=== PATIENT | male | born 1995 | race Caucasian/White ===

== ENCOUNTER 2022-04-05 13:29 | Emergency (ER) | payer OTHER, SELFPAY ==
[2022-04-05] VITALS (8 sets, daily range): BP systolic 123–146; BP diastolic 56–96; PULSE 56–88; RESP 24; TEMP 37.2; O2SAT 97–100
--- NOTE | 2022-04-05 13:47 | DI.CT.S_ITS ---
PROCEDURE: CT KIDNEY URETER BLADDER (KUB) INDICATIONS: flank pain TECHNIQUE: Axial sections were acquired from the lung bases to the pubic symphysis. Coronal and sagittal reformats were performed. For radiation dose reduction, the following was used: automated exposure control, adjustment of mA and/or kV according to patient size. COMPARISON: None. FINDINGS: Image quality: Excellent. Lung bases: Unremarkable. Heart: No significant findings. URINARY: Right Kidney: Mild hydronephrosis. Additional nonobstructing kidney stones x2 measuring 0.4 cm or less. Right Ureter: Mild hydroureter. Obstructing calculus at the right UVJ passing into the urinary bladder measuring 0.4 cm, (2/77). Left Kidney: No hydronephrosis. At least 2 nonobstructing kidney stones. Largest measuring 0.4 cm. Left Ureter: No hydroureter. Bladder: Normal wall thickness. No stones. ABDOMEN: Liver: Unremarkable. Gallbladder: Unremarkable. No calcified stones. Biliary ducts: Unremarkable. Pancreas: Unremarkable. Spleen: Unremarkable. Adrenal Glands: Unremarkable. Stomach and Bowel: Stomach, small bowel loops, and colon are unremarkable. Normal appendix. Peritoneum: No abnormal intraperitoneal fluid. No free air. Ventral Wall: No hernia. Abdominal Nodes: No enlarged retroperitoneal or mesenteric lymph nodes. Vessels: Aorta and inferior vena cava are normal in size. PELVIS: Pelvic Organs: Unremarkable. Pelvic Nodes: Unremarkable. Miscellaneous: No inguinal hernias are seen. Bones: No suspicious lesion. IMPRESSION: 1. Stone passing through the right UVJ measuring 0.4 cm. Mild right hydroureteronephrosis. 2. Additional small nonobstructing kidney stones bilaterally. Dictated by: Philip Pardo M.D. on 04/05/2022 at 14:26 Approved by: Philip Pardo M.D. on 04/05/2022 at 14:30
[2022-04-05] MEDS: KETOROLAC 30 MG/ML VIAL 15 MG IV (13:55)
[2022-04-05] MEDS: ONDANSETRON 4 MG/2 ML INJ IV (13:55)
[2022-04-05] MEDS: HYDROMORPHONE 0.5 MG INJ IV (13:55)
[2022-04-05 13:56] LABS: Add Manual Diff / Slide Review NO; Basophils Absolute Auto 100 /uL (0-100); Basophils Percent Auto 0.9 % (0-2); Eosinophils Absolute Auto 300 /uL (0-450); Hematocrit 45.1 % (41-53); Hemoglobin 15.9 g/dL (13.5-17.5); Lymphocytes Absolute Auto 3100 /uL (1100-4500); Lymphocytes Percent Auto 34.8 % (25-40); Mean Corpuscular HGB Conc 35.3 % (30-36); Mean Corpuscular Hemoglobin 29.5 PG (26-34); Mean Corpuscular Volume 83.8 fL (80-100); Monocytes Absolute Auto 400 /uL (0-900); Monocytes Percent Auto 4.6 % (3-14); Neutrophils Absolute Auto 5000 /uL (1500-7000); Neutrophils Percent Auto 56.7 % (50-75); Platelet Count 315 X10^3/uL (150-400); Red Blood Cell Count 5.38 X10^6/uL (4.5-5.9); Red Cell Distribution Width 13.2 % (11.6-14.8); White Blood Cell Count 8.8 X10^3/uL (4.5-11.0)
[2022-04-05 14:13] LABS: Alanine Aminotransferase 30 IU/L (<50); Albumin 4.6 g/dL (3.5-5.0); Albumin Globulin Ratio 1.5 (1.0-2.8); Alkaline Phosphatase 77 U/L (38-126); Aspartate Aminotransferase 31 IU/L (17-59); BUN Creatinine Ratio 12.9 (6-22); Bilirubin Total 0.5 mg/dL (0.2-1.3); Blood Urea Nitrogen 13 mg/dL (9-20); C-Reactive Protein Quant < 0.5 mg/dL (<1.0); Calcium 9.4 mg/dL (8.4-10.2); Carbon Dioxide 21 mmol/L (22-32); Chloride 107 mmol/L (98-107); Estimated Glomerular Filt Rate > 60 mL/min (>60); Globulin 3.1 g/dL (1.7-4.1); Glucose 109 mg/dL (70-100); HEMOLYSIS < 15 (0-50); Potassium 3.9 mmol/L (3.4-5.1); Sodium 141 mmol/L (137-145); Total Protein 7.7 g/dL (6.3-8.2)
--- NOTE | 2022-04-05 14:49 | ED_ITS ---
HPI - Abdominal Pain General Chief Complaint: Abdominal Pain Stated Complaint: kidney stone Time Seen by Provider: 04/05/22 13:47 Source: patient Mode of arrival: Ambulatory History of Present Illness HPI narrative: 26-year-old male nonsmoker with history of kidney stones presents with a chief complaint of a relatively sudden onset severe right lower quadrant pain with radiation to his right flank that started a few hours ago. He denies any obvious provocation or palliation and states that the waves of pain seemed to come and go with a might have its own. He is had persistent nausea and vomiting and difficulty producing urine. He denies any fever or chills. He denies runny nose, sore throat or cough Related Data Previous Rx's Medication Instructions Recorded hydrocodone 5 mg-acetaminophen 325 1 tab PO Q4-6H PRN pain #10 tabs 04/05/22 mg tablet ketorolac 10 mg tablet 10 mg PO Q6H PRN pain #14 tabs 04/05/22 ondansetron 4 mg disintegrating 4 mg PO TID-QID PRN nausea and 04/05/22 tablet vomiting #10 tabs tamsulosin 0.4 mg capsule (Flomax) 0.4 mg PO DAILY #30 caps 04/05/22 Allergies Allergy/AdvReac Type Severity Reaction Status Date / Time No Known Drug Allergies Allergy Verified 04/05/22 16:02 Review of Systems Review of Systems Narrative: GENERAL: Denies chills, fatigue, malaise, fever, sweats. HEENT: Denies sinus pain, ear pain, sore throat, difficulty swallowing, dizziness. RESPIRATORY: Denies dyspnea, cough, wheezing, hemoptysis, sputum. CARDIOVASCULAR: Denies chest pain, palpitations, orthopnea, edema, GASTROINTESTINAL: See HPI. : See HPI MUSCULOSKELETAL: denies weakness, joint pain, or bony pain SKIN: Denies rash, skin lesions, or other NEUROLOGIC: Denies weakness, headache, numbness, change in speech, confusion, seizures, incoordination. PSYCHIATRIC: No concerning psychosocial issues. 12 point review of systems is negative except for those stated above Exam Narrative Exam Narrative: GENERAL: [26] year old patient appears stated age. Well-developed patient, in obvious distress, pacing, complaining of pain and rubbing his side, holding an emesis bag HEAD: Atraumatic. Normocephalic. EYES: Pupils equal round and reactive. Extraocular motions intact. No scleral icterus. No injection or drainage. ENT: Nose without bleeding, purulent drainage. Throat without erythema, tonsillar hypertrophy or exudate. Airway patent. NECK: Trachea midline. Non tender CARDIOVASCULAR: Regular rate and rhythm without murmurs, gallops, or rubs. RESPIRATORY: Clear to auscultation. Breath sounds equal bilaterally. No wheezes, rales, or rhonchi. GASTROINTESTINAL: Abdomen soft, non-tender, nondistended. EXTREMITIES: No edema or joint tenderness. BACK: Nontender without deformity or crepitance. No flank tenderness. NEURO: AOx3. SKIN: No rash or erythema of visible areas Initial Vital Signs Initial Vital Signs: Vital Signs Temperature 98.9 F 04/05/22 13:40 Pulse Rate 88 04/05/22 13:40 Respiratory Rate 24 04/05/22 13:40 Blood Pressure 138/77 04/05/22 13:40 Pulse Oximetry 100 04/05/22 13:40 Oxygen Delivery Method 04/05/22 13:40 Course Orders Ordered: Discontinued Medications Hydrocodone Bitart/Acetaminophen (Hydrocodone/Acet 5/325 Prepack) 1 bottle MISC SEEINSTR ONE Stop: 04/05/22 16:48 Last Admin: 04/05/22 17:14 Dose: 1 bottle Documented By: ANABELA Hydromorphone HCl (Hydromorphone 0.5 Mg Inj) 0.5 mg IV NOW ONE Stop: 04/05/22 13:48 Last Admin: 04/05/22 13:55 Dose: 0.5 mg Documented By: MILAGROS Sodium Chloride (Normal Saline 0.9%) 1,000 mls @ 1,000 mls/hr IV BOLUS ONE Stop: 04/05/22 14:55 Last Infusion: 04/05/22 16:00 Dose: 0 mls/hr Documented By: Admin: 04/05/22 14:55 Dose: 1,000 mls/hr Documented By: FRANCESCA Lidocaine HCl 5.1 ml/ Sodium (Chloride) 55.1 mls @ 330.6 mls/hr IV NOW ONE Stop: 04/05/22 15:33 Last Infusion: 04/05/22 17:00 Dose: 0 mls/hr Documented By: FRANCESCA(2) Admin: 04/05/22 16:14 Dose: 330.6 mls/hr Documented By: ANABELA Ketorolac Tromethamine (Ketorolac 30 Mg/Ml Vial) 15 mg IV NOW ONE Stop: 04/05/22 13:50 Last Admin: 04/05/22 13:55 Dose: 15 mg Documented By: MILAGROS Metoclopramide HCl (Metoclopramide 10 Mg/2 Ml Inj) 10 mg IV NOW ONE Stop: 04/05/22 15:33 Last Admin: 04/05/22 15:52 Dose: 10 mg Documented By: FRANCESCA Ondansetron HCl (Ondansetron 4 Mg/2 Ml Inj) 4 mg IV NOW ONE Stop: 04/05/22 13:50 Last Admin: 04/05/22 13:55 Dose: 4 mg Documented By: MILAGROS Ondansetron HCl (Ondansetron 4 Mg Odt Prepack) 1 bottle MISC SEEINSTR ONE Stop: 04/05/22 16:48 Last Admin: 04/05/22 17:14 Dose: 1 bottle Documented By: ANABELA Tamsulosin HCl (Tamsulosin 0.4 Mg Capsule) 0.4 mg PO NOW ONE Stop: 04/05/22 15:33 Last Admin: 04/05/22 16:00 Dose: 0.4 mg Documented By: FRANCESCA(2) Reevaluation(s) Reevaluation #1: Patient having significant improvement in above-stated symptoms Vital Signs Vital signs: Vital Signs - 8 hr 04/05/22 13:40 04/05/22 14:39 04/05/22 14:41 Temperature 98.9 F Pulse Rate 88 68 Respiratory Rate 24 Blood Pressure 138/77 146/96 H Pulse Oximetry 100 97 Oxygen Delivery Method Room Air 04/05/22 14:41 Temperature Pulse Rate 58 L Respiratory Rate Blood Pressure Pulse Oximetry 97 Oxygen Delivery Method MDM - Abdominal Pain Lab Data Result diagrams: 04/05/22 13:46 04/05/22 13:46 Labs: Lab Results 04/05/22 04/05/22 Range/Units 13:46 13:46 WBC 8.8 (4.5-11.0) X10^3/uL RBC 5.38 (4.5-5.9) X10^6/uL Hgb 15.9 (13.5-17.5) g/dL Hct 45.1 (41-53) % MCV 83.8 (80-100) fL MCH 29.5 (26-34) PG MCHC 35.3 (30-36) % RDW 13.2 (11.6-14.8) % Plt Count 315 (150-400) X10^3/uL Neut % (Auto) 56.7 (50-75) % Lymph % (Auto) 34.8 (25-40) % [place] % (Auto) 4.6 (3-14) % Eos % (Auto) 3.0 (2-4) % Baso % (Auto) 0.9 (0-2) % Neut # (Auto) 5000 (1956-4154) /uL Lymph # (Auto) 3100 (6045-3361) /uL [place] # (Auto) 400 (0-900) /uL Eos # (Auto) 300 (0-450) /uL Baso # (Auto) 100 (0-100) /uL Sodium 141 (137-145) mmol/L Potassium 3.9 (3.4-5.1) mmol/L Chloride 107 (98-107) mmol/L Carbon Dioxide 21 L (22-32) mmol/L BUN 13 (9-20) mg/dL Creatinine 1.01 (0.66-1.25) mg/dL Estimated GFR > 60 (>60) mL/min BUN/Creatinine Ratio 12.9 (6-22) Glucose 109 H (70-100) mg/dL Calcium 9.4 (8.4-10.2) mg/dL Total Bilirubin 0.5 (0.2-1.3) mg/dL AST 31 (17-59) IU/L ALT 30 (<50) IU/L Alkaline Phosphatase 77 (38-126) U/L C-Reactive Protein < 0.5 (<1.0) mg/dL Total Protein 7.7 (6.3-8.2) g/dL Albumin 4.6 (3.5-5.0) g/dL Globulin 3.1 (1.7-4.1) g/dL Albumin/Globulin Ratio 1.5 (1.0-2.8) Point of care testing: Urine Dip Bedside Urine Glucose Negative Bedside Urine Bilirubin - Negative Bedside Urine Ketone + 15 Urine Specific [place] 1.020 Bedside Urine Occult Blood +++ Bedside Urine pH 6 Bedside Urine Protein - Negative Bedside Urine Urobilinogen - Negative Bedside Urine Nitrite - Negative Bedside Urine Leukocytes - Negative Esterase Imaging Data CT scan - abdomen/pelvis: Radiologist's Impression: [address] [address] [address] Scan Report Signed Patient: Luke Porter MR#: [id number] : 1995 Acct:[id number] Age/Sex: 26 / M Date of Service: 04/05/22 Loc: ED Accession Number: [id number] ?? Procedure: CT kidney ureter bladder (KUB) Ordering Provider: Ct Bull PROCEDURE:? CT KIDNEY URETER BLADDER (KUB) ? INDICATIONS:? flank pain ? TECHNIQUE:? Axial sections were acquired from the lung bases to the pubic symphysis.? Cor onal and sagittal reformats were performed.? For radiation dose reduction, the following was used: ?automated exposure control, adjustment of mA and/or kV according to patient size.? ? COMPARISON:? None. ? FINDINGS:? Image quality:? Excellent.? ? Lung bases:? Unremarkable.? ? Heart:? No significant findings. ? URINARY: Right Kidney:? Mild hydronephrosis.? Additional nonobstructing kidney stones x2 measuring 0.4 cm or less.? Right Ureter:? Mild hydroureter.? Obstructing calculus at the right UVJ passing into the urinary bladder measuring 0.4 cm, ().? ? Left Kidney: ? No hydronephrosis.? At least 2 nonobstructing kidney stones.? Largest measuring 0.4 cm. Left Ureter:? No hydroureter.? ? Bladder:? Normal wall thickness. No stones. ? ? ? ABDOMEN: Liver:? Unremarkable.? ? Gallbladder:? Unremarkable.? No calcified stones. ? Biliary ducts:? Unremarkable.? ? Pancreas:? Unremarkable.? ? Spleen:? Unremarkable.? ? Adrenal Glands:? Unremarkable.? ? ? Stomach and Bowel:? Stomach, small bowel loops, and colon are unremarkable.? Normal appendix. Peritoneum:? No abnormal intraperitoneal fluid.? No free air.? ? Ventral Wall: ? No hernia.? Abdominal Nodes:? No enlarged retroperitoneal or mesenteric lymph nodes.? Vessels:? Aorta and inferior vena cava are normal in size.? ? PELVIS: Pelvic Organs:? Unremarkable.? ? Pelvic Nodes: Unremarkable. Miscellaneous: No inguinal hernias are seen. ? ? ? Bones:? No suspicious lesion. ? IMPRESSION:? 1. Stone passing through the right UVJ measuring 0.4 cm.? Mild right hydroureteronephrosis.? ? 2. Additional small nonobstructing kidney stones bilaterally. ? ? ? Dictated by: Philip Pardo M.D. on 04/05/2022 at 14:26 ? ? Approved by: Philip Pardo M.D. on 04/05/2022 at 14:30 ? MDM Narrative Medical decision making narrative: Patient with history and physical consistent with kidney stone. Imaging consistent with 4 mm stone at right UVJ. There is no evidence of sepsis, acute kidney injury. Patient pain well controlled, tolerating orals, patient given return precautions and questions answered to his apparent satisfaction Discharge Plan Departure Patient Disposition: Home Clinical Impression: Calculus of kidney Instructions: DI for Kidney Stones Activity Restrictions/Additional Instructions: *You have been diagnosed with [right-sided 4 mm kidney stone *What to do: *Please continue to take your regular medications as directed. [x ] New medication prescriptions sent to your pharmacy: [ DOD] [ ] New medication written as a paper prescription [ ] No new medications given *Please follow up with your primary care provider in 2-3 days, call for an appointment. Let them know you were seen in the Emergency Department and that we ask that you be seen in follow up. We will electronically transmit a record of today's note if your PCP is in our system *If you do not have a primary care provider please contact the [facility] Resource line at [phone]. They will ask some questions about your medical history and help get you set up with a doctor in the community. *Return to Emergency Department if you should have any new, worsening or concerning symptoms, such as [fever greater than 101 F, shaking chills, worsening pain, persistent vomiting or other bothersome symptoms] Prescriptions: New hydrocodone-acetaminophen 5-325 mg tablet 1 tab PO Q4-6H PRN (Reason: pain) Qty: 10 0RF ketorolac 10 mg tablet 10 mg PO Q6H PRN (Reason: pain) Qty: 14 0RF tamsulosin [Flomax] 0.4 mg capsule 0.4 mg PO DAILY Qty: 30 0RF ondansetron 4 mg tablet,disintegrating 4 mg PO TID-QID PRN (Reason: nausea and vomiting) Qty: 10 0RF Referrals: Carmelo Stephenson MD [Physician] - Provider,Linda BARAHONA [Primary Care Provider] - Visit Report Forms: Patient Portal/API
[2022-04-05] MEDS: SODIUM CHLORIDE 0.9% 1,000 ML 1000 ML IV (14:55)
[2022-04-05] MEDS: METOCLOPRAMIDE 10 MG/2 ML INJ IV (15:52)
[2022-04-05] MEDS: TAMSULOSIN 0.4 MG CAPSULE PO (16:00)
[2022-04-05] MEDS: LIDOCAINE 2% 5.1 ML in SODIUM CHLORIDE 0.9% 50 ML 330.6 ML IV (16:14)
[2022-04-05] MEDS: ONDANSETRON 4 MG ODT PREPACK 1 BOTTLE MISC (17:14)
[2022-04-05] MEDS: HYDROCODONE/ACET 5/325 PREPACK 1 BOTTLE MISC (17:14)
== END 2022-04-05 17:30 | disposition home or self-care (01) ==
PROVIDERS: Nurse Practitioner Critical Care Medicine; Emergency Provider Emergency Medicine
DX: N20.0 Calculus of kidney (principal); R11.2 Nausea with vomiting, unspecified; Z87.442 Personal history of urinary calculi
CPT/HCPCS: 36415; 74176; 80053; 81003; 85025; 86140; 96361; 96365; 96375; 99284; J1170; J1885; J2405; J2765

== ENCOUNTER 2022-08-07 10:48 | Emergency (ER) | payer OTHER, SELFPAY ==
[2022-08-07 11:02] VITALS: BP 130/84; PULSE 72; RESP 15; TEMP 36.1; O2SAT 98; BMI 25.8
--- NOTE | 2022-08-07 12:39 | PC.NURSE ---
pt states he thinks he has a sinus infection that is moving into his ear. he tried flonase for his nasal symptoms, and benadryl thinking this might be allergies. the pain has started to move into his ear, he tried flushing his ear and it made it worse. pt has appt on wednesday at [facility] but pain made him come to ER today
--- NOTE | 2022-08-07 13:41 | ED.URI ---
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 Patient denies any trauma to his ear. No history of otitis media or sinusitis. Patient has an appointment with his family doctor next week, but did not think he can wait the weekend due to the pain. Related Data Previous Rx's Medication Instructions Recorded hydrocodone 5 mg-acetaminophen 325 1 tab PO Q4-6H PRN pain #10 tabs 04/05/22 mg tablet ketorolac 10 mg tablet 10 mg PO Q6H PRN pain #14 tabs 04/05/22 ondansetron 4 mg disintegrating 4 mg PO TID-QID PRN nausea and 04/05/22 tablet vomiting #10 tabs tamsulosin 0.4 mg capsule (Flomax) 0.4 mg PO DAILY #30 caps 04/05/22 amoxicillin 875 mg-potassium 1 tab PO BID 10 days #20 tabs 08/07/22 clavulanate 125 mg tablet Allergies Allergy/AdvReac Type Severity Reaction Status Date / Time No Known Drug Allergies Allergy Verified 08/07/22 11:02 Review of Systems <LUKASZ Jensen - Last Filed: 08/07/22 14:12> Review of Systems Narrative: Narrative: See HPI. GENERAL: Denies chills, fatigue, fever, sweats. HEENT: Denies sore throat, difficulty swallowing, dizziness. Endorses sinus pain and left ear pain. RESPIRATORY: Denies dyspnea, cough, wheezing, sputum. CARDIOVASCULAR: Denies chest pain, palpitations, edema. GASTROINTESTINAL: Denies nausea, vomiting, abdominal pain, diarrhea, constipation. : Denies dysuria, frequency, incontinence, hematuria, urinary retention, flank pain. MSK: Denies weakness, joint pain, or bony pain. SKIN: Denies rash, skin lesions, or pruritis. NEUROLOGIC: Denies weakness, dizziness, headache, numbness, confusion. PSYCHIATRIC: No concerning psychosocial issues. Patient History <LUKASZ Jensen - Last Filed: 08/07/22 14:12> Social History Smoking Status: Current every day smoker Smoking Status: Current every day smoker alcohol intake frequency: holidays/special occasions only Substance Use Type: does not use Exam <LUKASZ Jensen - Last Filed: 08/07/22 14:12> Narrative Exam Narrative: Exam Narrative: GENERAL: This is a well-nourished, well-developed patient, in no acute distress. HEAD: Atraumatic. Normocephalic. EYES: Pupils equal round and reactive. Extraocular motions intact. No scleral icterus, injection or drainage. ENT: Nose without bleeding, purulent drainage. Throat with mild erythema, tonsillar hypertrophy or exudate. Uvula midline. Airway patent. Left TM is red and painful, right TMs and canals clear. Maxillary sinus tenderness. NECK: Trachea midline. No JVD or lymphadenopathy. Nontender. CARDIOVASCULAR: Regular rate and rhythm without murmurs, peripheral pulses intact, cap refill <2 sec. RESPIRATORY: Breath sounds equal and clear bilaterally. No wheezes, rales, or rhonchi. No cough. No increased respiratory effort. No accessory muscle use. GASTROINTESTINAL: Abdomen soft, non-tender, nondistended without guarding or rebound. No suprapubic pain. MSK: Moves all extremities. Normal range of motion, no clubbing or edema. Neurovascularly intact. NEURO: A&O x 3. SKIN: Warm, dry, no rashes or lesions noted. Initial Vital Signs Initial Vital Signs: Vital Signs Temperature 97.0 F L 08/07/22 11:02 Pulse Rate 72 08/07/22 11:02 Respiratory Rate 15 08/07/22 11:02 Blood Pressure 130/84 08/07/22 11:02 Pulse Oximetry 98 08/07/22 11:02 Oxygen Delivery Method Room Air 08/07/22 11:02 <Brittanie Braxton DO - Last Filed: 08/08/22 13:14> Initial Vital Signs Initial Vital Signs: Vital Signs Temperature 97.0 F L 08/07/22 11:02 Pulse Rate 72 08/07/22 11:02 Respiratory Rate 15 08/07/22 11:02 Blood Pressure 130/84 08/07/22 11:02 Pulse Oximetry 98 03/03/23 11:02 Oxygen Delivery Method Room Air 08/07/22 11:02 Course <LUKASZ Jensen - Last Filed: 08/07/22 14:12> Vital Signs Vital signs: Vital Signs - 8 hr 08/07/22 11:02 Temperature 97.0 F L Pulse Rate 72 Respiratory Rate 15 Blood Pressure 130/84 Pulse Oximetry 98 Oxygen Delivery Method Room Air <Brittanie Braxton DO - Last Filed: 08/08/22 13:14> Vital Signs Vital signs: Vital Signs - 8 hr 08/07/22 11:02 Temperature 97.0 F L Pulse Rate 72 Respiratory Rate 15 Blood Pressure 130/84 Pulse Oximetry 98 Oxygen Delivery Method Room Air MDM - URI/Sore Throat <LUKASZ Jensen - Last Filed: 08/07/22 14:12> Differential Diagnosis Differential diagnosis: Likely upper respiratory infection, otitis media, sinusitis, viral infection and pharyngitis MDM Narrative Medical decision making narrative: 27-year-old male that presents to the emergency department with sinus and left ear pain x1 week. Assessment was consistent with left otitis media. Will treat with Augmentin. Recommended supportive care that included rest, increased oral hydration, gargling with warm salt water in the morning, daily Claritin or Zyrtec and Flonase nasal spray. Patient verbalized understanding and was agreeable to course of action. Discharge Plan Departure Patient Disposition: Home Clinical Impression: Otitis media Instructions: DI for Sinusitis, DI for Middle Ear Infection-Adult Activity Restrictions/Additional Instructions: *You have been diagnosed with ear infection and possible beginnings of a sinus infection. I will be treating you with Augmentin for 10 days to treat both of these. Please follow-up with your family doctor if symptoms persist or worsen. *What to do: *Please continue to take your regular medications as directed. [x ] New medication prescriptions sent to your pharmacy: [Sahil Rodriguez] [ ] New medication written as a paper prescription [ ] No new medications given *Please follow up with your primary care provider in 2-3 days, call for an appointment. Let them know you were seen in the Emergency Department and that we ask that you be seen in follow up. We will electronically transmit a record of today's note if your PCP is in our system *If you do not have a primary care provider please contact the [facility] Resource line at [phone]. They will ask some questions about your medical history and help get you set up with a doctor in the community. ? Return to ER if you should have any new, worsening or concerning symptoms, such as worsening pain, severe headache, confusion, chest pain, difficulty breathing, fever greater than 101 F, shaking chills, persistent vomiting to the point that you cannot drink fluids, or other new or worsening symptoms. Prescriptions: New amoxicillin-pot clavulanate 875-125 mg tablet 1 tab PO BID 10 Days Qty: 20 0RF No Action hydrocodone-acetaminophen 5-325 mg tablet 1 tab PO Q4-6H PRN (Reason: pain) Qty: 10 0RF ketorolac 10 mg tablet 10 mg PO Q6H PRN (Reason: pain) Qty: 14 0RF tamsulosin [Flomax] 0.4 mg capsule 0.4 mg PO DAILY Qty: 30 0RF ondansetron 4 mg tablet,disintegrating 4 mg PO TID-QID PRN (Reason: nausea and vomiting) Qty: 10 0RF Referrals: Provider,Linda BARAHONA [Primary Care Provider] - Stand Alone Forms: Patient Portal/API <Brittanie Braxton DO - Last Filed: 08/08/22 13:14> Cosign ED Attending Tezature Attestation: I was immediately available in the department for consultation. Documentation has been reviewed.
== END 2022-08-07 14:00 | disposition home or self-care (01) ==
PROVIDERS: Emergency Provider Registered Nurse
DX: H66.92 Otitis media, unspecified, left ear (principal)
CPT/HCPCS: 99281

== ENCOUNTER 2022-08-12 22:28 | Emergency (ER) | payer OTHER, SELFPAY ==
[2022-08-12 22:32] VITALS: BP 144/91; PULSE 94; RESP 18; TEMP 36.7; O2SAT 98; BMI 26.6
--- NOTE | 2022-08-12 23:07 | ED.GENADULT ---
HPI - General Adult General Chief complaint: Urogenital-Male Stated complaint: states kidney stone Time Seen by Provider: 08/12/22 23:06 Source: patient Mode of arrival: Ambulatory Limitations: no limitations History of Present Illness HPI narrative: Patient is a 27-year-old male who is here for evaluation of left-sided flank pain. He states the symptoms started just prior to arrival here in the emergency department. He states that he has had a kidney stone in the past although was in the right side and this feels very similar to that. I can still was back in March. He states that he had an appointment with Urology earlier today to discuss his last kidney stone and he was told that he had and other 1 on the left. It was not hurting at the time of his visit today. He did have Flomax at home and took a dose of this prior to arrival Related Data Previous Rx's Medication Instructions Recorded hydrocodone 5 mg-acetaminophen 325 1 tab PO Q4-6H PRN pain #10 tabs 04/05/22 mg tablet ketorolac 10 mg tablet 10 mg PO Q6H PRN pain #14 tabs 04/05/22 ondansetron 4 mg disintegrating 4 mg PO TID-QID PRN nausea and 04/05/22 tablet vomiting #10 tabs tamsulosin 0.4 mg capsule (Flomax) 0.4 mg PO DAILY #30 caps 04/05/22 amoxicillin 875 mg-potassium 1 tab PO BID 10 days #20 tabs 08/07/22 clavulanate 125 mg tablet hydrocodone 5 mg-acetaminophen 325 1 tab PO Q4-6H PRN pain #14 tabs 08/13/22 mg tablet ondansetron 4 mg disintegrating 4 mg PO Q6H PRN nausea and 08/13/22 tablet vomiting #14 tabs Allergies Allergy/AdvReac Type Severity Reaction Status Date / Time No Known Drug Allergies Allergy Verified 08/07/22 11:02 Review of Systems Constitutional Constitutional: Reports system reviewed and no additional complaints, except as documented Gastrointestinal Gastrointestinal: Reports system reviewed and no additional complaints, except as documented Genitourinary Genitourinary: Reports system reviewed and no additional complaints, except as documented Musculoskeletal Musculoskeletal: Reports system reviewed and no additional complaints, except as documented Hematologic/Lymphatic On Anticoagulants: No Patient History Social History (Reviewed 08/13/22 @ 03:12 by DORYS Pinzon Smoking Status: Current every day smoker Smoking Status: Current every day smoker tobacco type: cigarettes alcohol intake frequency: holidays/special occasions only Substance Use Type: does not use Exam Initial Vital Signs Initial Vital Signs: Vital Signs Temperature 98.1 F 08/12/22 22:32 Pulse Rate 94 H 08/12/22 22:32 Respiratory Rate 18 08/12/22 22:32 Blood Pressure 144/91 H 08/12/22 22:32 Pulse Oximetry 98 08/12/22 22:32 Oxygen Delivery Method Room Air 08/12/22 22:32 HENMT Head: normal to inspection and normocephalic GI Inspection: normal to inspection Palpation: soft and No tender Back/Spine/Pelvis Back: No CVA tenderness Skin General: no rashes or lesions noted Neuro General: patient alert, patient awake and moves all extremities Extrem General: capillary refill normal Course Orders Ordered: ED Orders 08/12/22 22:50 Basic Metabolic Panel Stat 08/13/22 00:17 CT kidney ureter bladder (KUB) Stat Discontinued Medications Hydrocodone Bitart/Acetaminophen (Hydrocodone/Acet 5/325 Prepack) 1 bottle MISC SEEINSTR ONE Stop: 08/13/22 02:03 Hydromorphone HCl (Hydromorphone 1 Mg Inj) 1 mg IV NOW ONE Stop: 08/12/22 23:08 Last Admin: 08/12/22 23:12 Dose: 1 mg Documented By: JULIA Hydromorphone HCl (Hydromorphone 1 Mg Inj) 1 mg IV NOW ONE Stop: 08/13/22 00:18 Last Admin: 08/13/22 00:21 Dose: 1 mg Documented By: VIKY Lidocaine HCl 6 ml/ Sodium (Chloride) 56 mls @ 336 mls/hr IV NOW ONE Stop: 08/12/22 23:38 Last Infusion: 08/13/22 00:03 Dose: 0 mls/hr Documented By: Admin: 08/12/22 23:50 Dose: 336 mls/hr Documented By: VIKY Ketorolac Tromethamine (Ketorolac 30 Mg/Ml Vial) 30 mg IV NOW ONE Stop: 08/12/22 23:22 Last Admin: 08/12/22 23:30 Dose: 30 mg Documented By: JULIA Ondansetron HCl (Ondansetron 4 Mg/2 Ml Inj) 4 mg IV NOW ONE Stop: 08/12/22 23:08 Last Admin: 08/12/22 23:12 Dose: 4 mg Documented By: AMU Ondansetron HCl (Ondansetron 4 Mg Odt Prepack) 1 bottle MISC SEEINSTR ONE Stop: 08/13/22 02:03 Ondansetron HCl (Ondansetron 4 Mg Odt Prepack) 1 bottle MISC SEEINSTR ONE Stop: 08/13/22 02:31 Ondansetron HCl (Ondansetron 4 Mg Odt Prepack) 1 bottle MISC NOW ONE Stop: 08/13/22 02:31 Vital Signs Vital signs: Vital Signs - 8 hr 08/12/22 22:32 Temperature 98.1 F Pulse Rate 94 H Respiratory Rate 18 Blood Pressure 144/91 H Pulse Oximetry 98 Oxygen Delivery Method Room Air Medical Decision Making Medical Records Medical records reviewed: Yes I reviewed the patient's medical records. Lab Data Lab results reviewed: Yes I reviewed the patient's lab results. 08/12/22 22:50 Labs: Lab Results 08/12/22 Range/Units 22:50 Sodium 136 L (137-145) mmol/L Potassium 3.3 L (3.4-5.1) mmol/L Chloride 97 L (98-107) mmol/L Carbon Dioxide 26 (22-32) mmol/L BUN 9 (9-20) mg/dL Creatinine 0.92 (0.66-1.25) mg/dL Estimated GFR > 60 (>60) mL/min BUN/Creatinine Ratio 9.8 (6-22) Glucose 101 H (70-100) mg/dL Calcium 9.5 (8.4-10.2) mg/dL Urine Dip Bedside Urine Bilirubin - Negative Bedside Urine Ketone - Negative Urine Specific [place] 1.010 Bedside Urine Occult Blood - Negative Bedside Urine pH 6 Bedside Urine Protein - Negative Bedside Urine Urobilinogen - Negative Bedside Urine Nitrite - Negative Bedside Urine Leukocytes - Negative Esterase Point of care testing: Urine Dip Bedside Urine Bilirubin - Negative Bedside Urine Ketone - Negative Urine Specific [place] 1.010 Bedside Urine Occult Blood - Negative Bedside Urine pH 6 Bedside Urine Protein - Negative Bedside Urine Urobilinogen - Negative Bedside Urine Nitrite - Negative Bedside Urine Leukocytes - Negative Esterase Imaging Data CT scan - abdomen/pelvis: Radiologist's Impression: PROCEDURE:? CT KIDNEY URETER BLADDER (KUB) ? INDICATIONS:? known L side stone with uncontrolled pain ? TECHNIQUE:? Axial sections were acquired from the lung bases to the pubic symphysis.? Coronal and sagittal reformats were performed.? For radiation dose reduction, the following was used: ?automated exposure control, adjustment of mA and/or kV according to patient size.? ? COMPARISON:? [facility], CT, CT KIDNEY URETER BLADDER (KUB), 04/05/2022, 13:54. ? FINDINGS:? Image quality:? Excellent.? ? Lung bases:? There is minimal atelectasis.? ? Heart:? Heart is normal in size. ? URINARY: Right Kidney and Ureter: ? There are least 3 small nonobstructing right renal stones, with the largest measuring up to 0.3 cm in the inferior pole.? No hydronephrosis.? No hydroureter.? ? Left Kidney and Ureter: ? There is an obstructing stone at the ureteropelvic junction measuring up to 0.5 cm with attenuation values of approximately 500-600 Hounsfield units. ?There is associated mild left hydronephrosis with mild perinephric stranding.? There are 4 small nonobstructing right renal stones also noted with the largest measuring up to 0.2 cm.? The left ureter is nondistended distal to the stone. ? Bladder:? Normal wall thickness. No stones. ? ? ? ABDOMEN: Liver:? Noncontrast evaluation of the liver demonstrates no discrete? mass. Gallbladder:? Within normal limits without calcified gallstones.? ? Biliary ducts:? No biliary ductal dilatation.? ? Pancreas:? Unremarkable.? ? Spleen:? Normal in size.? ? Adrenal Glands:? No adrenal nodules.? ? ? Stomach and Bowel:? Stomach, small bowel loops, and colon are normal in caliber and wall thickness.? The appendix is normal in appearance.? Peritoneum:? No abnormal intraperitoneal fluid.? No free air.? ? Ventral Wall: ? No hernia.? Abdominal Nodes:? No retroperitoneal or mesenteric adenopathy by size criteria.? Vessels:? Aorta and inferior vena cava are normal in size.? ? PELVIS: Pelvic Organs:? Unremarkable.? ? Pelvic Nodes: No enlarged lymph nodes.? Miscellaneous: No inguinal hernias identified. ? ? ? Bones:? Visualized osseous structures demonstrate no suspicious focal lesions. IMPRESSION:? ? 1. Obstructing urinary stone at the left UPJ with mild left hydronephrosis. ? 2. Additional small nonobstructing bilateral renal stones as described.? MDM Narrative Medical decision making narrative: Somewhat difficult to initially control the patient's symptoms however we were able to get the patient relatively asymptomatic. The CT scan was performed because of this difficulty. It does show a left-sided 5 mm proximal stone with hydro. Urinalysis shows no signs of urinary tract infection. Kidney function is unremarkable. No indication for emergent urologic consultation. He has Flomax already and was sent home with medications to try to control his symptoms. He was given specific return precautions. He expressed understanding and agreement. Discharge Plan Departure Patient Disposition: Home Clinical Impression: Renal colic on left side Instructions: DI for Kidney Stones Activity Restrictions/Additional Instructions: I do recommend that you take the medications as directed. I also recommend that in the office is open earlier today that you contact the urologist for a follow-up. Return to the emergency department for uncontrolled pain, uncontrolled vomiting, fevers or any other worsening symptoms. Prescriptions: New hydrocodone-acetaminophen 5-325 mg tablet 1 tab PO Q4-6H PRN (Reason: pain) Qty: 14 0RF ondansetron 4 mg tablet,disintegrating 4 mg PO Q6H PRN (Reason: nausea and vomiting) Qty: 14 0RF No Action hydrocodone-acetaminophen 5-325 mg tablet 1 tab PO Q4-6H PRN (Reason: pain) Qty: 10 0RF ketorolac 10 mg tablet 10 mg PO Q6H PRN (Reason: pain) Qty: 14 0RF tamsulosin [Flomax] 0.4 mg capsule 0.4 mg PO DAILY Qty: 30 0RF ondansetron 4 mg tablet,disintegrating 4 mg PO TID-QID PRN (Reason: nausea and vomiting) Qty: 10 0RF amoxicillin-pot clavulanate 875-125 mg tablet 1 tab PO BID 10 Days Qty: 20 0RF Referrals: ProviderLinda [Primary Care Provider] - Stand Alone Forms: Patient Portal/API
[2022-08-12] MEDS: ONDANSETRON 4 MG/2 ML INJ IV (23:12)
[2022-08-12] MEDS: HYDROMORPHONE 1 MG INJ IV (23:12)
[2022-08-12 23:21] LABS: BUN Creatinine Ratio 9.8 (6-22); Blood Urea Nitrogen 9 mg/dL (9-20); Calcium 9.5 mg/dL (8.4-10.2); Carbon Dioxide 26 mmol/L (22-32); Chloride 97 mmol/L (98-107); Estimated Glomerular Filt Rate > 60 mL/min (>60); Glucose 101 mg/dL (70-100); HEMOLYSIS < 15 (0-50); Potassium 3.3 mmol/L (3.4-5.1); Sodium 136 mmol/L (137-145)
[2022-08-12] MEDS: KETOROLAC 30 MG/ML VIAL IV (23:30)
[2022-08-12] MEDS: LIDOCAINE 2% (PF) 6 ML in SODIUM CHLORIDE 0.9% 50 ML 336 ML IV (23:50)
--- NOTE | 2022-08-13 00:17 | DI.CT.S_ITS ---
PROCEDURE: CT KIDNEY URETER BLADDER (KUB) INDICATIONS: known L side stone with uncontrolled pain TECHNIQUE: Axial sections were acquired from the lung bases to the pubic symphysis. Coronal and sagittal reformats were performed. For radiation dose reduction, the following was used: automated exposure control, adjustment of mA and/or kV according to patient size. COMPARISON: [facility], CT, CT KIDNEY URETER BLADDER (KUB), 04/05/2022, 13:54. FINDINGS: Image quality: Excellent. Lung bases: There is minimal atelectasis. Heart: Heart is normal in size. URINARY: Right Kidney and Ureter: There are least 3 small nonobstructing right renal stones, with the largest measuring up to 0.3 cm in the inferior pole. No hydronephrosis. No hydroureter. Left Kidney and Ureter: There is an obstructing stone at the ureteropelvic junction measuring up to 0.5 cm with attenuation values of approximately 500-600 Hounsfield units. There is associated mild left hydronephrosis with mild perinephric stranding. There are 4 small nonobstructing right renal stones also noted with the largest measuring up to 0.2 cm. The left ureter is nondistended distal to the stone. Bladder: Normal wall thickness. No stones. ABDOMEN: Liver: Noncontrast evaluation of the liver demonstrates no discrete mass. Gallbladder: Within normal limits without calcified gallstones. Biliary ducts: No biliary ductal dilatation. Pancreas: Unremarkable. Spleen: Normal in size. Adrenal Glands: No adrenal nodules. Stomach and Bowel: Stomach, small bowel loops, and colon are normal in caliber and wall thickness. The appendix is normal in appearance. Peritoneum: No abnormal intraperitoneal fluid. No free air. Ventral Wall: No hernia. Abdominal Nodes: No retroperitoneal or mesenteric adenopathy by size criteria. Vessels: Aorta and inferior vena cava are normal in size. PELVIS: Pelvic Organs: Unremarkable. Pelvic Nodes: No enlarged lymph nodes. Miscellaneous: No inguinal hernias identified. Bones: Visualized osseous structures demonstrate no suspicious focal lesions. IMPRESSION: 1. Obstructing urinary stone at the left UPJ with mild left hydronephrosis. 2. Additional small nonobstructing bilateral renal stones as described. Dictated by: Mau Acuña M.D. on 08/13/2022 at 1:41 Approved by: Mau Acuña M.D. on 08/13/2022 at 1:48
[2022-08-13] MEDS: HYDROMORPHONE 1 MG INJ IV (00:21)
--- NOTE | 2022-08-13 01:15 | PC.NURSE ---
hx of kidney stones. First one on the L. Saw his urologist two ago
[2022-08-13] MEDS: HYDROCODONE/ACET 5/325 PREPACK 1 BOTTLE MISC (03:15)
[2022-08-13] MEDS: ONDANSETRON 4 MG ODT PREPACK 1 BOTTLE MISC (03:15)
== END 2022-08-13 03:24 | disposition home or self-care (01) ==
PROVIDERS: Emergency Provider Emergency Medicine
DX: N23 Unspecified renal colic (principal); N20.0 Calculus of kidney; Z87.442 Personal history of urinary calculi
CPT/HCPCS: 36415; 74176; 80048; 81003; 96374; 96375; 96376; 99284; J1170; J1885; J2405

== ENCOUNTER 2022-08-13 22:59 | Emergency (ER) | payer OTHER, SELFPAY ==
[2022-08-13 23:12] VITALS: BP 142/97; PULSE 91; O2SAT 96
[2022-08-13 23:13] VITALS: BP 142/97; PULSE 89; RESP 20; TEMP 37.4; O2SAT 98; BMI 27.4
--- NOTE | 2022-08-13 23:16 | ED_ITS ---
HPI - Male Genitourinary General Chief complaint: Urogenital-Male Stated complaint: kidney pain Time Seen by Provider: 08/13/22 23:16 Source: patient Mode of arrival: Ambulatory History of Present Illness HPI Narrative: 27-year-old male with known left-sided 5 mm kidney stone returns after having been evaluated yesterday. He states his pain is worsening and seems to be more persistent. He is nauseated but denies any vomiting. He is had no fever or chills. He states he is having a hard time urinating today. He denies any chest pain or shortness of breath. He has been taking his medications as directed which include Flomax, hydrocodone. He uses urology at [facility] and has a scheduled appointment for wednesday, but didn't think he could wait. Related Data Previous Rx's Medication Instructions Recorded hydrocodone 5 mg-acetaminophen 325 1 tab PO Q4-6H PRN pain #10 tabs 04/05/22 mg tablet ketorolac 10 mg tablet 10 mg PO Q6H PRN pain #14 tabs 04/05/22 ondansetron 4 mg disintegrating 4 mg PO TID-QID PRN nausea and 04/05/22 tablet vomiting #10 tabs tamsulosin 0.4 mg capsule (Flomax) 0.4 mg PO DAILY #30 caps 04/05/22 amoxicillin 875 mg-potassium 1 tab PO BID 10 days #20 tabs 08/07/22 clavulanate 125 mg tablet hydrocodone 5 mg-acetaminophen 325 1 tab PO Q4-6H PRN pain #14 tabs 08/13/22 mg tablet ondansetron 4 mg disintegrating 4 mg PO Q6H PRN nausea and 08/13/22 tablet vomiting #14 tabs hydrocodone 5 mg-acetaminophen 325 1 tab PO Q4-6H PRN pain #10 tabs 08/14/22 mg tablet Allergies Allergy/AdvReac Type Severity Reaction Status Date / Time No Known Drug Allergies Allergy Verified 08/13/22 23:16 Review of Systems Review of Systems Narrative: GENERAL: Denies chills, fatigue, malaise, fever, sweats. HEENT: Denies sinus pain, ear pain, sore throat, difficulty swallowing, dizziness. RESPIRATORY: Denies dyspnea, cough, wheezing, hemoptysis, sputum. CARDIOVASCULAR: Denies chest pain, palpitations, orthopnea, edema, GASTROINTESTINAL: Denies nausea, vomiting, abdominal pain, diarrhea, c onstipation, melena. : See HPI MUSCULOSKELETAL: denies weakness, joint pain, or bony pain SKIN: Denies rash, skin lesions, or other NEUROLOGIC: Denies weakness, headache, numbness, change in speech, confusion, seizures, incoordination. PSYCHIATRIC: No concerning psychosocial issues. 12 point review of systems is negative except for those stated above Patient History Social History Smoking Status: Current every day smoker Smoking Status: Current every day smoker tobacco type: cigarettes alcohol intake frequency: holidays/special occasions only Substance Use Type: does not use Exam Narrative Exam Narrative: GENERAL: [27] year old patient appears stated age. Well-developed patient, in mild distress. HEAD: Atraumatic. Normocephalic. EYES: Pupils equal round and reactive. Extraocular motions intact. No scleral icterus. No injection or drainage. ENT: Nose without bleeding, purulent drainage. Throat without erythema, tonsillar hypertrophy or exudate. Airway patent. NECK: Trachea midline. Non tender CARDIOVASCULAR: Regular rate and rhythm without murmurs, gallops, or rubs. RESPIRATORY: Clear to auscultation. Breath sounds equal bilaterally. No wheezes, rales, or rhonchi. GASTROINTESTINAL: Abdomen soft, non-tender, nondistended. EXTREMITIES: No edema or joint tenderness. BACK: Left CVA tenderness NEURO: AOx3. SKIN: No rash or erythema of visible areas Initial Vital Signs Initial Vital Signs: Vital Signs Pulse Rate 91 H 08/13/22 23:12 Blood Pressure 142/97 H 08/13/22 23:12 Pulse Oximetry 96 08/13/22 23:12 Course Orders Ordered: ED Orders 08/13/22 23:30 Basic Metabolic Panel Stat Complete Blood Count AUTO DIFF Stat 08/13/22 23:59 US renal complete Stat 08/14/22 00:25 Urine Culture Stat Urine Microscopic Stat 08/14/22 01:47 BMP [Basic Metabolic Panel] Stat Discontinued Medications Hydromorphone HCl (Hydromorphone 0.5 Mg Inj) 0.5 mg IV NOW ONE Stop: 08/14/22 01:18 Last Admin: 08/14/22 01:33 Dose: 0.5 mg Documented By: GC Hydromorphone HCl (Hydromorphone 0.5 Mg Inj) 0.5 mg IV NOW ONE Stop: 08/14/22 02:20 Last Admin: 08/14/22 02:26 Dose: 0.5 mg Documented By: BERHANE Sodium Chloride (Normal Saline 0.9%) 1,000 mls @ 1,000 mls/hr IV BOLUS ONE Stop: 08/14/22 00:16 Last Infusion: 08/14/22 00:54 Dose: 0 mls/hr Documented By: Admin: 08/13/22 23:39 Dose: 1,000 mls/hr Documented By: RB Lidocaine HCl 6 ml/ Sodium (Chloride) 56 mls @ 336 mls/hr IV NOW ONE Stop: 08/13/22 23:18 Last Infusion: 08/14/22 00:03 Dose: 0 mls/hr Documented By: Admin: 08/13/22 23:41 Dose: 336 mls/hr Documented By: RB Ketorolac Tromethamine (Ketorolac 30 Mg/Ml Vial) 15 mg IV NOW ONE Stop: 08/13/22 23:18 Last Admin: 08/13/22 23:42 Dose: 15 mg Documented By: RB Ondansetron HCl (Ondansetron 4 Mg/2 Ml Inj) 4 mg IV NOW ONE Stop: 08/13/22 23:18 Last Admin: 08/13/22 23:41 Dose: 4 mg Documented By: RB Reevaluation(s) Reevaluation #1: Minimal change in symptoms after Toradol and lidocaine drip Reevaluation #2: Patient able to urinate with ease, no change in symptoms, requesting pain medications, Dilaudid ordered Vital Signs Vital signs: Vital Signs - 8 hr 08/13/22 23:13 08/13/22 23:12 08/13/22 23:12 Temperature 99.4 F Pulse Rate 89 91 H Respiratory Rate 20 Blood Pressure 142/97 H 142/97 H Pulse Oximetry 98 96 Oxygen Delivery Method Room Air 08/13/22 23:30 08/13/22 23:30 08/13/22 23:45 Temperature Pulse Rate 77 78 Respiratory Rate Blood Pressure 144/94 H Pulse Oximetry 96 97 Oxygen Delivery Method 08/14/22 00:00 08/14/22 00:00 08/14/22 00:15 Temperature Pulse Rate 78 75 Respiratory Rate Blood Pressure 135/82 Pulse Oximetry 96 95 Oxygen Delivery Method 08/14/22 00:31 08/14/22 00:45 08/14/22 01:00 Temperature Pulse Rate 70 78 71 Respiratory Rate Blood Pressure Pulse Oximetry 97 96 96 Oxygen Delivery Method 08/14/22 01:15 08/14/22 01:30 08/14/22 01:34 Temperature Pulse Rate 75 76 78 Respiratory Rate Blood Pressure Pulse Oximetry 96 96 95 Oxygen Delivery Method 08/14/22 01:34 08/14/22 01:45 08/14/22 02:00 Temperature Pulse Rate 80 Respiratory Rate Blood Pressure 139/84 134/71 Pulse Oximetry 95 Oxygen Delivery Method 08/14/22 02:00 08/14/22 02:16 08/14/22 02:30 Temperature Pulse Rate 68 67 85 Respiratory Rate Blood Pressure Pulse Oximetry 93 97 95 Oxygen Delivery Method 08/14/22 02:31 08/14/22 02:31 Temperature Pulse Rate 83 Respiratory Rate Blood Pressure 158/89 H Pulse Oximetry 94 Oxygen Delivery Method MDM - Male Genitourinary Lab Data 08/13/22 23:30 08/14/22 01:47 Labs: Lab Results 08/13/22 08/13/22 08/14/22 Range/Units 23:30 23:30 00:25 WBC 12.2 H (4.5-11.0) X10^3/uL RBC 5.08 (4.5-5.9) X10^6/uL Hgb 14.7 (13.5-17.5) g/dL Hct 43.7 (41-53) % MCV 86.0 (80-100) fL MCH 28.9 (26-34) PG MCHC 33.7 (30-36) % RDW 13.0 (11.6-14.8) % Plt Count 202 (150-400) X10^3/uL Neut % (Auto) 82.7 H (50-75) % Lymph % (Auto) 9.6 L (25-40) % [place] % (Auto) 6.0 (3-14) % Eos % (Auto) 1.5 L (2-4) % Baso % (Auto) 0.2 (0-2) % Neut # (Auto) 76586 H (6779-0446) /uL Lymph # (Auto) 1200 (0677-8423) /uL [place] # (Auto) 700 (0-900) /uL Eos # (Auto) 200 (0-450) /uL Baso # (Auto) 0 (0-100) /uL Sodium 135 L (137-145) mmol/L Potassium 4.1 (3.4-5.1) mmol/L Chloride 101 (98-107) mmol/L Carbon Dioxide 26 (22-32) mmol/L BUN 19 (9-20) mg/dL Creatinine 1.62 H (0.66-1.25) mg/dL Estimated GFR 60 (>60) mL/min BUN/Creatinine Ratio 11.7 (6-22) Glucose 101 H (70-100) mg/dL Calcium 8.9 (8.4-10.2) mg/dL Urine RBC 1-5/hpf (0-5/HPF) Urine WBC 0-1/hpf (0-5/HPF) Urine Bacteria None seen (None) Micro UA Comment * 08/14/22 Range/Units 01:47 WBC (4.5-11.0) X10^3/uL RBC (4.5-5.9) X10^6/uL Hgb (13.5-17.5) g/dL Hct (41-53) % MCV (80-100) fL MCH (26-34) PG MCHC (30-36) % RDW (11.6-14.8) % Plt Count (150-400) X10^3/uL Neut % (Auto) (50-75) % Lymph % (Auto) (25-40) % [place] % (Auto) (3-14) % Eos % (Auto) (2-4) % Baso % (Auto) (0-2) % Neut # (Auto) (2010-2484) /uL Lymph # (Auto) (3300-9628) /uL [place] # (Auto) (0-900) /uL Eos # (Auto) (0-450) /uL Baso # (Auto) (0-100) /uL Sodium 137 (137-145) mmol/L Potassium 4.2 (3.4-5.1) mmol/L Chloride 105 (98-107) mmol/L Carbon Dioxide 27 (22-32) mmol/L BUN 16 (9-20) mg/dL Creatinine 1.33 H (0.66-1.25) mg/dL Estimated GFR > 60 (>60) mL/min BUN/Creatinine Ratio 12.0 (6-22) Glucose 94 (70-100) mg/dL Calcium 8.1 L (8.4-10.2) mg/dL Urine RBC (0-5/HPF) Urine WBC (0-5/HPF) Urine Bacteria (None) Micro UA Comment Urine Dip Bedside Urine Glucose Negative Bedside Urine Bilirubin - Negative Bedside Urine Ketone +/- 5 Urine Specific [place] 1.015 Bedside Urine Occult Blood ++ Bedside Urine pH 6.0 Bedside Urine Protein - Negative Bedside Urine Urobilinogen - Negative Bedside Urine Nitrite - Negative Bedside Urine Leukocytes - Negative Esterase Imaging Data Renal US: Radiologist's Impression: [address] [address] Ultrasound Report Signed Patient: Luke Porter MR#: [id number] : 1995 Acct:[id number] Age/Sex: 27 / M Date of Service: 08/13/22 Loc: ED Accession Number: [id number] ?? Procedure: US renal complete Ordering Provider: Alvaro Cobb D.O. PROCEDURE:? US RENAL COMPLETE ? INDICATIONS:? LEFT FLANK PAIN; ELEVATED CREATININE ? TECHNIQUE:? Real-time scanning was performed of the kidneys and bladder, with image docum entation.? ? COMPARISON:? [facility], CT, CT KIDNEY URETER BLADDER (KUB), 08/13/2022, 0:34. ? FINDINGS:? ? Kidneys:? Right kidney measures 12.0 cm long; left kidney measures 11.8 cm long.? Right renal cortical thickness is 1.8 cm; left renal cortical thickness is 1.6 cm.? Renal cortical echotexture is normal.? There is mild left hydronephrosis redemonstrated as seen on CT.? No discrete left renal stone visualized sonographically.? A 0.4 cm nonobstructing stone is demonstrated within the inferior pole of the right kidney. ? Bladder:? Pre-void bladder volume is 211 mL.? Post-void residual is 0 mL.? Pre- void images demonstrate no intraluminal masses or stones.? On pre-void images, the right ureteral jet is noted with color Doppler interrogation.? (Of note, ureteral jets may not be detectable in up to 25% of cases due to insufficient differences in specific gravity between ureteral and bladder urine).? ? Miscellaneous:? No free pelvic fluid.? ? IMPRESSION:? ? 1. Persistent mild left hydronephrosis as seen on the recent CT.? ? 2. Small nonobstructing stone within the right kidney. ? 3. Punctate left renal stones seen on CT not visualized sonographically.? ? Dictated by: Mau Acuña M.D. on 08/14/2022 at 1:11 ? ? Approved by: Mau Acuña M.D. on 08/14/2022 at 1:14 ? MDM Narrative Medical decision making narrative: CC: 27-year-old male with severe, worsening left flank pain Complicating co-morbidities: Known 5 mm stone Data collected from: Patient Medical records reviewed: Prior notes reviewed in our EMR Differential considered, but not limited to: Obstructive uropathy, pyelonephritis versus other Exam documented above, pertinent findings include: Left flank pain, clearly uncomfortable Lab Test results independently reviewed as above. Pertinent findings: Slight leukocytosis with relative left shift, creatinine has bumped from 0.92 to 1.65 Imaging studies independently reviewed: Renal ultrasound demonstrates continued obstructive uropathy Consultations: Treatments: Saline, Toradol, lidocaine drip, Dilaudid Re-evaluations: Improves symptoms, tolerating orals Discussion: Patient with 5 mm stone presents with pain. There is no fever or chills, urine shows no sign of infection. Renal ultrasound demonstrates ongoing hydronephrosis but no other significant findings. Patient given saline and other above-stated therapies with improves symptoms, ability to tolerate orals, improvement of creatinine to 1.3. Patient appropriate for discharge, encouraged to follow closely with his Urology team Disposition: see below, along with detailed discharge instructions that have been reviewed with patient as well as indications for ED re-evaluation and additional outpatient follow up Discharge Plan Departure Patient Disposition: Home Clinical Impression: Renal colic on left side, Kidney calculi Instructions: DI for Kidney Stones Activity Restrictions/Additional Instructions: *You have been diagnosed with [left-sided kidney stone] *What to do: *Please continue to take your regular medications as directed. [ x] New medication prescriptions sent to your pharmacy: [ [facility]] [ ] New medication written as a paper prescription [ ] No new medications given *Please follow up with your urologist on Wednesday as planned. *If you do not have a primary care provider please contact the [facility] Resource line at [phone]. They will ask some questions about your medical history and help get you set up with a doctor in the community. *Return to Emergency Department if you should have any new, worsening or concerning symptoms, such as [fever greater than 101 F, shaking chills, worsening pain, persistent vomiting or other bothersome symptoms] Prescriptions: New hydrocodone-acetaminophen 5-325 mg tablet 1 tab PO Q4-6H PRN (Reason: pain) Qty: 10 0RF No Action hydrocodone-acetaminophen 5-325 mg tablet 1 tab PO Q4-6H PRN (Reason: pain) Qty: 10 0RF ketorolac 10 mg tablet 10 mg PO Q6H PRN (Reason: pain) Qty: 14 0RF tamsulosin [Flomax] 0.4 mg capsule 0.4 mg PO DAILY Qty: 30 0RF ondansetron 4 mg tablet,disintegrating 4 mg PO TID-QID PRN (Reason: nausea and vomiting) Qty: 10 0RF amoxicillin-pot clavulanate 875-125 mg tablet 1 tab PO BID 10 Days Qty: 20 0RF hydrocodone-acetaminophen 5-325 mg tablet 1 tab PO Q4-6H PRN (Reason: pain) Qty: 14 0RF ondansetron 4 mg tablet,disintegrating 4 mg PO Q6H PRN (Reason: nausea and vomiting) Qty: 14 0RF Referrals: ProviderLinda [Primary Care Provider] - Stand Alone Forms: Patient Portal/API
--- NOTE | 2022-08-13 23:21 | PC.NURSE ---
Patient was here yesterday and had a 5mm left sided kidney stone.
[2022-08-13 23:30] VITALS: BP 144/94; PULSE 77; O2SAT 96
[2022-08-13] MEDS: SODIUM CHLORIDE 0.9% 1,000 ML 1000 ML IV (23:39)
[2022-08-13] MEDS: ONDANSETRON 4 MG/2 ML INJ IV (23:41)
[2022-08-13] MEDS: LIDOCAINE 2% (PF) 6 ML in SODIUM CHLORIDE 0.9% 50 ML 336 ML IV (23:41)
[2022-08-13 23:42] LABS: Add Manual Diff / Slide Review NO; Basophils Absolute Auto 0 /uL (0-100); Basophils Percent Auto 0.2 % (0-2); Eosinophils Absolute Auto 200 /uL (0-450); Eosinophils Percent Auto 1.5 % (2-4); Hematocrit 43.7 % (41-53); Hemoglobin 14.7 g/dL (13.5-17.5); Lymphocytes Absolute Auto 1200 /uL (1100-4500); Lymphocytes Percent Auto 9.6 % (25-40); Mean Corpuscular HGB Conc 33.7 % (30-36); Mean Corpuscular Hemoglobin 28.9 PG (26-34); Monocytes Absolute Auto 700 /uL (0-900); Neutrophils Absolute Auto 10100 /uL (1500-7000); Neutrophils Percent Auto 82.7 % (50-75); Platelet Count 202 X10^3/uL (150-400); Red Blood Cell Count 5.08 X10^6/uL (4.5-5.9); White Blood Cell Count 12.2 X10^3/uL (4.5-11.0)
[2022-08-13] MEDS: KETOROLAC 30 MG/ML VIAL 15 MG IV (23:42)
[2022-08-13 23:45] VITALS: PULSE 78; O2SAT 97
[2022-08-13 23:51] LABS: BUN Creatinine Ratio 11.7 (6-22); Blood Urea Nitrogen 19 mg/dL (9-20); Calcium 8.9 mg/dL (8.4-10.2); Carbon Dioxide 26 mmol/L (22-32); Chloride 101 mmol/L (98-107); Estimated Glomerular Filt Rate 60 mL/min (>60); Glucose 101 mg/dL (70-100); HEMOLYSIS < 15 (0-50); Potassium 4.1 mmol/L (3.4-5.1); Sodium 135 mmol/L (137-145)
--- NOTE | 2022-08-13 23:59 | DI.US.S_ITS ---
PROCEDURE: US RENAL COMPLETE INDICATIONS: LEFT FLANK PAIN; ELEVATED CREATININE TECHNIQUE: Real-time scanning was performed of the kidneys and bladder, with image documentation. COMPARISON: [facility], CT, CT KIDNEY URETER BLADDER (KUB), 08/13/2022, 0:34. FINDINGS: Kidneys: Right kidney measures 12.0 cm long; left kidney measures 11.8 cm long. Right renal cortical thickness is 1.8 cm; left renal cortical thickness is 1.6 cm. Renal cortical echotexture is normal. There is mild left hydronephrosis redemonstrated as seen on CT. No discrete left renal stone visualized sonographically. A 0.4 cm nonobstructing stone is demonstrated within the inferior pole of the right kidney. Bladder: Pre-void bladder volume is 211 mL. Post-void residual is 0 mL. Pre-void images demonstrate no intraluminal masses or stones. On pre-void images, the right ureteral jet is noted with color Doppler interrogation. (Of note, ureteral jets may not be detectable in up to 25% of cases due to insufficient differences in specific gravity between ureteral and bladder urine). Miscellaneous: No free pelvic fluid. IMPRESSION: 1. Persistent mild left hydronephrosis as seen on the recent CT. 2. Small nonobstructing stone within the right kidney. 3. Punctate left renal stones seen on CT not visualized sonographically. Dictated by: Mau Acuña M.D. on 08/14/2022 at 1:11 Approved by: Mau Acuña M.D. on 08/14/2022 at 1:14
[2022-08-14] VITALS (13 sets, daily range): BP systolic 134–158; BP diastolic 71–89; PULSE 67–85; O2SAT 93–97
[2022-08-14 01:16] LABS: Bacteria Urine None Seen; RBC Urine 1-5/HPF (0-5/HPF); WBC Urine 0-1/HPF (0-5/HPF)
[2022-08-14] MEDS: HYDROMORPHONE 0.5 MG INJ IV ×2 (01:33→02:26)
[2022-08-14 02:05] LABS: Blood Urea Nitrogen 16 mg/dL (9-20); Calcium 8.1 mg/dL (8.4-10.2); Carbon Dioxide 27 mmol/L (22-32); Chloride 105 mmol/L (98-107); Estimated Glomerular Filt Rate > 60 mL/min (>60); Glucose 94 mg/dL (70-100); HEMOLYSIS < 15 (0-50); Potassium 4.2 mmol/L (3.4-5.1); Sodium 137 mmol/L (137-145)
== END 2022-08-14 02:39 | disposition home or self-care (01) ==
PROVIDERS: Emergency Provider Emergency Medicine
DX: N20.0 Calculus of kidney (principal); N23 Unspecified renal colic
CPT/HCPCS: 36415; 76770; 80048; 81003; 81015; 85025; 87086; 96365; 96375; 96376; 99284; J1170; J1885; J2405

== ENCOUNTER 2022-09-19 18:20 | Emergency (ER) | payer OTHER, SELFPAY ==
[2022-09-19 18:26] VITALS: BP 135/88; PULSE 75; RESP 20; TEMP 36.1; O2SAT 97; BMI 27.4
--- NOTE | 2022-09-19 18:30 | ED_ITS ---
HPI - SOB/Dyspnea General Chief Complaint: Upper Respiratory Symptoms Stated Complaint: bad cough SOB ongoing x14, tingling in fing. Time Seen by Provider: 09/19/22 18:25 Source: patient, RN notes reviewed and old records reviewed Mode of arrival: Ambulatory Limitations: no limitations History of Present Illness HPI Narrative: This is a 27-year-old male with history of kidney stones who presents with 2 weeks of nonproductive cough. Patient states he is had fevers intermittently and most recently. He states a little bit of chest discomfort. Sometimes short of breath when he talks a lot. Patient states no dizziness or passing out. He states pain is when he coughs describes it as substernal. Does not radiate. He has used nebulizers in the past but not regularly he states no known asthma history. Patient states he has not had any productive sputum. He is had a dry cough. He states that he is had nasal congestion. No ear pain. No sore throat. No nausea, no vomiting. He has coughed hard enough to make himself throw up once or twice. He denies any diarrhea, constipation, no urinary symptoms. No swelling in his extremities. He states no daily medications. Denies any prior surgeries. No known drug allergies. He smokes 3-4 cigarettes daily, denies alcohol, denies illicit. Related Data Previous Rx's Medication Instructions Recorded hydrocodone 5 mg-acetaminophen 325 1 tab PO Q4-6H PRN pain #10 tabs 04/05/22 mg tablet ketorolac 10 mg tablet 10 mg PO Q6H PRN pain #14 tabs 04/05/22 ondansetron 4 mg disintegrating 4 mg PO TID-QID PRN nausea and 04/05/22 tablet vomiting #10 tabs tamsulosin 0.4 mg capsule (Flomax) 0.4 mg PO DAILY #30 caps 04/05/22 hydrocodone 5 mg-acetaminophen 325 1 tab PO Q4-6H PRN pain #14 tabs 08/13/22 mg tablet ondansetron 4 mg disintegrating 4 mg PO Q6H PRN nausea and 08/13/22 tablet vomiting #14 tabs hydrocodone 5 mg-acetaminophen 325 1 tab PO Q4-6H PRN pain #10 tabs 08/14/22 mg tablet prednisone 10 mg tablets in a dose See Rx Instructions PO .COMPLEX 09/19/22 pack #15 ea Allergies Allergy/AdvReac Type Severity Reaction Status Date / Time No Known Drug Allergies Allergy Verified 08/13/22 23:16 Review of Systems Review of Systems ROS Unobtainable: All systems reviewed & are unremarkable except as noted in HPI and below Patient History Social History Smoking Status: Current every day smoker Smoking Status: Current every day smoker tobacco type: cigarettes alcohol intake frequency: holidays/special occasions only Substance Use Type: does not use Exam Narrative Exam Narrative: GEN: well nourished, well appearing male, alert and oriented x 3, patient appears to be in mild distress. HEENT: Atraumatic, pupils are equal round reactive to light, extraocular movements are intact, nares show mild clear rhinorrhea, TMs are clear with no fluid, there is no conjunctival pallor. Throat is clear without any exudates, erythema, tonsillar enlargement or uvular deviation HEART: Regular rate and rhythm without murmur, clicks, rubs. pulses are equal in upper and lower extremities, no swelling bilateral lower extremities. LUNGS:Lungs clear to auscultation, no wheezes, rales, crackles, chest moves symmetrically, no tachypnea or accessory muscle use. Patient has dry cough intermittently. ABD:bowel sounds normal, soft, non-tender, no guarding, rebound, rigidity, no masses noted, no hepatosplenomegaly :No CVA tenderness MSCL: Non-tender, no muscle atrophy, muscles strength 5/5 upper and lower extr emities, full range of motion, normal gait NEURO:CN 2-12 intact, sensation normal SKIN: No rash, erythema or other skin changes. Initial Vital Signs Initial Vital Signs: Vital Signs Temperature 97 F L 09/19/22 18:26 Pulse Rate 75 09/19/22 18:26 Respiratory Rate 20 09/19/22 18:26 Blood Pressure 135/88 09/19/22 18:26 Pulse Oximetry 97 09/19/22 18:26 Oxygen Delivery Method Room Air 09/19/22 18:26 Course Orders Ordered: ED Orders 09/19/22 18:30 Chest [XR chest 2V] Stat Discontinued Medications Albuterol (Albuterol Hfa Prepack) 1 box [facility] ONE Stop: 09/19/22 19:16 Last Admin: 09/19/22 19:20 Dose: 1 box Documented By: Ibuprofen (Ibuprofen 400 Mg Tablet) 800 mg PO NOW ONE Stop: 09/19/22 18:32 Last Admin: 09/19/22 18:44 Dose: 800 mg Documented By: JALIL Vital Signs Vital signs: Vital Signs - 8 hr 09/19/22 18:26 09/19/22 19:06 09/19/22 19:16 Temperature 97 F L Pulse Rate 75 69 68 Respiratory Rate 20 20 Blood Pressure 135/88 Pulse Oximetry 97 96 97 Oxygen Delivery Method Room Air 09/19/22 19:17 Temperature Pulse Rate Respiratory Rate Blood Pressure 120/65 Pulse Oximetry Oxygen Delivery Method MDM - SOB/Dyspnea Imaging Data Chest x-ray: Radiologist's Impression: [address] [address] XRay Report Signed Patient: Luke Porter MR#: [id number] : 1995 Acct:[id number] Age/Sex: 27 / M Date of Service: 09/19/22 Loc: ED Accession Number: [id number] ?? Procedure: XR chest 2V Ordering Provider: Rubi Espitia D.O. PROCEDURE:? XR CHEST 2V ? INDICATIONS:? cough x 2 weeks, fever ? TECHNIQUE:? 2 views of the chest were acquired.? ? COMPARISON:? None. ? FINDINGS:? ? Surgical changes and devices:? None.? ? Lungs and pleura:? An incomplete inspiratory result is noted, causing a crowded appearance to the lung markings.? No focal infiltrates are seen.? No pneumothorax or significant pleural effusions are seen. ? ? Mediastinum:? Mediastinal contours are normal.? Heart size is normal.? ? Bones and chest wall:? No suspicious bony abnormalities.? Soft tissues appear unremarkable.? IMPRESSION:? Low lung volumes, without focal infiltrates. ? ? Dictated by: True Morris M.D. on 09/19/2022 at 17:42 ? ? Approved by: True Morris M.D. on 09/19/2022 at 17:42? MDM Narrative Medical decision making narrative: This is a 27-year-old male who presents with persistent upper respiratory symptoms that have seemed to moved into his chest. He is, vital signs are appropriate he is not hypoxic, no tachycardia, no hypotension or tachypnea. Patient's lungs are clear on examination he is had 2 weeks of symptoms with some chest cough but has continued to have some fevers. Chest x-ray was obtained and is negative with no exam findings consistent with pneumonia. My suspicion for cardiac or other causes is much lower. Patient has required nebulizers when he was younger. He is not particularly wheeze at white now but my experience has been some individuals do respond with a cough so albuterol with spacer was given here and prescription for short course of prednisone with follow-up precautions. Discharge Plan Departure Patient Disposition: Home Clinical Impression: Bronchitis Instructions: DI for Acute Bronchitis Activity Restrictions/Additional Instructions: Please follow-up for recheck if your symptoms are not improving over the next week. Your chest x-ray does not show any signs of pneumonia. Some individuals benefit from a short course of steroids. You can try albuterol 1-2 puffs every 6 hours (use with spacer) Prescription sent to [facility] in [place]. Please return for worsening chest pain, shortness of breath, lightheadedness or passing out, coughing up blood, new swelling in her extremities or other new or concerning changes. Prescriptions: New prednisone 10 mg tablets,dose pack See Rx Instructions .ROUTE .COMPLEX Qty: 15 0RF Rx Instructions: Take 5 tablets p.o. x1 day, then 4 tablets p.o. x1 day, then 3 tablets p.o. x1 day, then 2 tablets p.o. x1 day, then 1 tablet p.o. x1 day No Action hydrocodone-acetaminophen 5-325 mg tablet 1 tab PO Q4-6H PRN (Reason: pain) Qty: 10 0RF ketorolac 10 mg tablet 10 mg PO Q6H PRN (Reason: pain) Qty: 14 0RF tamsulosin [Flomax] 0.4 mg capsule 0.4 mg PO DAILY Qty: 30 0RF ondansetron 4 mg tablet,disintegrating 4 mg PO TID-QID PRN (Reason: nausea and vomiting) Qty: 10 0RF hydrocodone-acetaminophen 5-325 mg tablet 1 tab PO Q4-6H PRN (Reason: pain) Qty: 14 0RF ondansetron 4 mg tablet,disintegrating 4 mg PO Q6H PRN (Reason: nausea and vomiting) Qty: 14 0RF hydrocodone-acetaminophen 5-325 mg tablet 1 tab PO Q4-6H PRN (Reason: pain) Qty: 10 0RF Referrals: ProviderLinda [Primary Care Provider] - Stand Alone Forms: Patient Portal/API
--- NOTE | 2022-09-19 18:30 | DI.RAD.S_ITS ---
PROCEDURE: XR CHEST 2V INDICATIONS: cough x 2 weeks, fever TECHNIQUE: 2 views of the chest were acquired. COMPARISON: None. FINDINGS: Surgical changes and devices: None. Lungs and pleura: An incomplete inspiratory result is noted, causing a crowded appearance to the lung markings. No focal infiltrates are seen. No pneumothorax or significant pleural effusions are seen. Mediastinum: Mediastinal contours are normal. Heart size is normal. Bones and chest wall: No suspicious bony abnormalities. Soft tissues appear unremarkable. IMPRESSION: Low lung volumes, without focal infiltrates. Dictated by: True Morris M.D. on 09/19/2022 at 17:42 Approved by: True Morris M.D. on 09/19/2022 at 17:42
[2022-09-19] MEDS: IBUPROFEN 400 MG TABLET 800 MG PO (18:44)
[2022-09-19 19:06] VITALS: PULSE 69; O2SAT 96
[2022-09-19 19:16] VITALS: PULSE 68; RESP 20; O2SAT 97
[2022-09-19 19:17] VITALS: BP 120/65
[2022-09-19] MEDS: ALBUTEROL HFA PREPACK 1 BOX MISC (19:20)
== END 2022-09-19 19:24 | disposition home or self-care (01) ==
PROVIDERS: Emergency Provider Emergency Medicine
DX: J40 Bronchitis, not specified as acute or chronic (principal); F17.200 Nicotine dependence, unspecified, uncomplicated
CPT/HCPCS: 71046; 99283

== ENCOUNTER 2022-09-24 06:58 | Emergency (ER) | payer OTHER, SELFPAY ==
[2022-09-24 07:08] VITALS: BP 112/73; PULSE 93; RESP 19; TEMP 36.3; O2SAT 96; BMI 27.4
--- NOTE | 2022-09-24 07:53 | ED.SOB ---
HPI - SOB/Dyspnea General Chief Complaint: Shortness of Breath/Dyspnea Stated Complaint: deep cough nola isn't helping Time Seen by Provider: 09/24/22 07:25 Source: patient Mode of arrival: Ambulatory Limitations: no limitations History of Present Illness HPI Narrative: This is a 27-year-old male with history kidney stones who presents for a 2nd time with persistent cough for almost 3 weeks. Patient states he is had subjective fevers intermittently where he feels warm. He states he does not feel short of breath but he is had a very persistent cough that is gotten worse since he was seen 5 days ago. He states it is nonproductive. He denies any lightheadedness or passing out. He states it feels uncomfortable in his chest when he coughs. He denies any hemoptysis. He has used nebulizers in the past when he was younger, he was given steroids and albuterol 5 days ago he states the 1st day seemed better and then returned. Patient states the albuterol does not seem to make any change in his cough. He states he developed a little bit of diarrhea after the steroids. No constipation. No urinary symptoms. No swelling in his extremities. No rash or skin changes. Does not take any daily medications. He denies any prior surgeries. No known drug allergies. He smokes 3-4 cigarettes daily, no alcohol or illicit. Patient does note he tried some [id number] Aleve p.m. but has not tried other antitussive medication. Related Data Previous Rx's Medication Instructions Recorded hydrocodone 5 mg-acetaminophen 325 1 tab PO Q4-6H PRN pain #10 tabs 04/05/22 mg tablet ketorolac 10 mg tablet 10 mg PO Q6H PRN pain #14 tabs 04/05/22 ondansetron 4 mg disintegrating 4 mg PO TID-QID PRN nausea and 04/05/22 tablet vomiting #10 tabs tamsulosin 0.4 mg capsule (Flomax) 0.4 mg PO DAILY #30 caps 04/05/22 hydrocodone 5 mg-acetaminophen 325 1 tab PO Q4-6H PRN pain #14 tabs 08/13/22 mg tablet ondansetron 4 mg disintegrating 4 mg PO Q6H PRN nausea and 08/13/22 tablet vomiting #14 tabs hydrocodone 5 mg-acetaminophen 325 1 tab PO Q4-6H PRN pain #10 tabs 08/14/22 mg tablet prednisone 10 mg tablets in a dose See Rx Instructions PO .COMPLEX 09/19/22 pack #15 ea azithromycin 250 mg tablet See Rx Instructions PO .COMPLEX #6 09/24/22 tabs codeine 10 mg-guaifenesin 100 mg/5 5 ml PO Q4-6H PRN cough #118 mL 09/24/22 mL oral liquid Allergies Allergy/AdvReac Type Severity Reaction Status Date / Time No Known Drug Allergies Allergy Verified 08/13/22 23:16 Review of Systems Review of Systems ROS Unobtainable: All systems reviewed & are unremarkable except as noted in HPI and below Patient History Social History Smoking Status: Current every day smoker Smoking Status: Current every day smoker tobacco type: cigarettes alcohol intake frequency: holidays/special occasions only Substance Use Type: does not use Exam Narrative Exam Narrative: GEN: well nourished, well appearing male, alert and oriented x 3, patient appears to be in mild distress. HEENT: Atraumatic, pupils are equal round reactive to light, extraocular movements are intact, nares are clear, there is no conjunctival pallor. Throat is clear without any exudates, erythema, tonsillar enlargement or uvular deviation HEART: Regular rate and rhythm without murmur, clicks, rubs. LUNGS:Lungs have breath sounds bilaterally, course at bases bilateral, no wheezes, rales, crackles, chest moves symmetrically, no tachypnea, no accessory muscle use. Patient has a dry persistent cough ABD:bowel sounds normal, soft, non-tender, no guarding, rebound, rigidity, no masses noted, no hepatosplenomegaly :No CVA tenderness MSCL: Non-tender, no muscle atrophy, muscles strength 5/5 upper and lower extremities, full range of motion, normal gait NEURO:CN 2-12 intact, sensation normal SKIN: No rash, erythema or other skin changes Initial Vital Signs Initial Vital Signs: Vital Signs Temperature 97.4 F L 09/24/22 07:08 Pulse Rate 93 H 09/24/22 07:08 Respiratory Rate 19 09/24/22 07:08 Blood Pressure 112/73 09/24/22 07:08 Pulse Oximetry 96 09/24/22 07:08 Oxygen Delivery Method Room Air 09/24/22 07:08 Course Orders Ordered: ED Orders 09/24/22 07:55 Respiratory Panel (Film Array) Stat 09/24/22 08:13 Chest [XR chest 2V] Stat Vital Signs Vital signs: Vital Signs - 8 hr 09/24/22 07:08 Temperature 97.4 F L Pulse Rate 93 H Respiratory Rate 19 Blood Pressure 112/73 Pulse Oximetry 96 Oxygen Delivery Method Room Air MDM - SOB/Dyspnea Lab Data Labs: Lab Results 09/24/22 Range/Units 07:55 Chlamy pneumoniae PCR Not detected (Not Detect) Adenovirus (PCR) Not detected (Not Detect) B. pertussis DNA (PCR) Not detected (Not Detecte) B.parapertussis DNA PCR Not detected (Not Detecte) Coronavirus OC43 (PCR) Not detected (Not Detect) Coronavirus HKU1 (PCR) Not detected (Not Detect) Coronavirus 229E (PCR) Not detected (Not Detect) SARS-CoV-2 (PCR) Detected H (Not Detecte) Coronavirus NL63 (PCR) Not detected (Not Detect) Human Metapneumovir PCR Not detected (Not Detect) Influenza Type A (PCR) Not detected (Not Detect) Influenza Type B (PCR) Not detected (Not Detect) M. pneumoniae (PCR) Not detected (Not Detect) Parainfluenza 1 (PCR) Not detected (Not Detect) Parainfluenza 2 (PCR) Not detected (Not Detect) Parainfluenza 3 (PCR) Detected H (Not Detect) Parainfluenza 4 (PCR) Not detected (Not Detect) RSV (PCR) Not detected (Not Detect) Entero/Rhino (PCR) Not detected (Not Detect) Imaging Data Chest x-ray: Radiologist's Impression: Close Chest X-Ray (Signed) Reji Gould - 09/24/22 Launch?[address] [address] XRay Report Signed Patient: Luke Porter MR#: [id number] : 1995 Acct:[id number] Age/Sex: 27 / M Date of Service: 09/24/22 Loc: ED Accession Number: [id number] ?? Procedure: XR chest 2V Ordering Provider: Mank,Rubi C D.O. PROCEDURE:? XR CHEST 2V ? INDICATIONS:? cough worsening ? TECHNIQUE:? 2 views of the chest were acquired.? ? COMPARISON:? [facility], CR, XR CHEST 2V, 09/19/2022, 18:27. ? FINDINGS:? ? Surgical changes and devices:? None.? ? Lungs and pleura:? Lungs are clear.? No pleural effusions or pneumothorax.? ? Mediastinum:? Mediastinal contours are normal.? Heart size is normal.? ? Bones and chest wall:? No suspicious bony abnormalities.? Soft tissues appear unremarkable.? ? IMPRESSION:? No acute cardiopulmonary abnormality. ? ? ? Dictated by: Reji Gould M.D. on 09/24/2022 at 8:37 ? ? Approved by: Reji Gould M.D. on 09/24/2022 at 8:38?? [facility] Narrative Medical decision making narrative: This is a 27-year-old male with persistent upper respiratory symptoms who is cough has worsened over the past 5 days. Patient had prior chest x-ray 5 days ago which was negative was repeated today. He is had steroids and albuterol reactive airway when was younger not persistently as an adult. This has made minimal to no improvement patient does not sound tight wheezy or have reactive airway changes on examination today. Suspect he may be developing an atypical pneumonia and felt appropriate for oral antibiotic therapy with subjective fevers and persistent cough for the past 3 weeks. Patient called back with PCR panel results, patient is positive for COVID-19 and parainfluenza 3. Discussed azithromycin may not be very helpful but can continue it. Discussed return precautions. Discharge Plan Departure Patient Disposition: Home Clinical Impression: Pneumonia Instructions: DI for Pneumonia -- Adult Activity Restrictions/Additional Instructions: Please follow-up if symptoms are persisting. Take antibiotics until completely gone You can take cough medication 5-10 mL every 6 hours as needed. This medication can make you sleepy do not drive, perform hazardous activities or make any major decisions while taking it. This medication will make you constipated please take a stool softener once to twice daily until stools are soft and regular. Prescription sent to [facility] in [place]. Please return for new or worsening fevers increasing chest pain, shortness of breath, coughing up blood, lightheadedness or passing out, new swelling in her extremities or other new or concerning changes. Prescriptions: New azithromycin 250 mg tablet See Rx Instructions .ROUTE .COMPLEX Qty: 6 0RF Rx Instructions: For 250 mg dose pack: take 500 mg today (day 1), then 250 mg for 4 days (days 2-5) codeine-guaifenesin 10-100 mg/5 mL liquid 5 ml PO Q4-6H PRN (Reason: cough) Qty: 118 0RF No Action hydrocodone-acetaminophen 5-325 mg tablet 1 tab PO Q4-6H PRN (Reason: pain) Qty: 10 0RF ketorolac 10 mg tablet 10 mg PO Q6H PRN (Reason: pain) Qty: 14 0RF tamsulosin [Flomax] 0.4 mg capsule 0.4 mg PO DAILY Qty: 30 0RF ondansetron 4 mg tablet,disintegrating 4 mg PO TID-QID PRN (Reason: nausea and vomiting) Qty: 10 0RF prednisone 10 mg tablets,dose pack See Rx Instructions .ROUTE .COMPLEX Qty: 15 0RF Rx Instructions: Take 5 tablets p.o. x1 day, then 4 tablets p.o. x1 day, then 3 tablets p.o. x1 day, then 2 tablets p.o. x1 day, then 1 tablet p.o. x1 day hydrocodone-acetaminophen 5-325 mg tablet 1 tab PO Q4-6H PRN (Reason: pain) Qty: 14 0RF ondansetron 4 mg tablet,disintegrating 4 mg PO Q6H PRN (Reason: nausea and vomiting) Qty: 14 0RF hydrocodone-acetaminophen 5-325 mg tablet 1 tab PO Q4-6H PRN (Reason: pain) Qty: 10 0RF Referrals: ProviderLinda [Primary Care Provider] - Stand Alone Forms: Patient Portal/API, Work Release Note
--- NOTE | 2022-09-24 08:13 | DI.RAD.S_ITS ---
PROCEDURE: XR CHEST 2V INDICATIONS: cough worsening TECHNIQUE: 2 views of the chest were acquired. COMPARISON: [facility], CR, XR CHEST 2V, 09/19/2022, 18:27. FINDINGS: Surgical changes and devices: None. Lungs and pleura: Lungs are clear. No pleural effusions or pneumothorax. Mediastinum: Mediastinal contours are normal. Heart size is normal. Bones and chest wall: No suspicious bony abnormalities. Soft tissues appear unremarkable. IMPRESSION: No acute cardiopulmonary abnormality. Dictated by: Reji Gould M.D. on 09/24/2022 at 8:37 Approved by: Reji Gould M.D. on 09/24/2022 at 8:38
[2022-09-24 08:56] VITALS: PULSE 77; RESP 20; O2SAT 98
[2022-09-24 09:20] LABS: Adenovirus Not Detected (Not Detect)
[2022-09-24 09:21] LABS: B. parapertussis Not Detected (Not Detecte); Bordetella pertussis Not Detected (Not Detecte); Chlamydophila pneumoniae Not Detected (Not Detect); Coronavirus 229E Not Detected (Not Detect); Coronavirus HKU1 Not Detected (Not Detect); Coronavirus NL 63 Not Detected (Not Detect); Coronavirus OC43 Not Detected (Not Detect); Human Metapneumovirus Not Detected (Not Detect); Human Rhinovirus/Enterovirus Not Detected (Not Detect); Influenza A Not Detected (Not Detect); Influenza B Not Detected (Not Detect); Mycoplasma pneumoniae Not Detected (Not Detect); Parainfluenza Virus 1 Not Detected (Not Detect); Parainfluenza Virus 2 Not Detected (Not Detect); Parainfluenza Virus 3 Detected (Not Detect); Parainfluenza Virus 4 Not Detected (Not Detect); Respiratory Syncytial Virus Not Detected (Not Detect); SARS- CoV-2 Detected (Not Detecte)
== END 2022-09-24 08:56 | disposition home or self-care (01) ==
PROVIDERS: Emergency Provider Emergency Medicine
DX: J18.9 Pneumonia, unspecified organism (principal); U07.1 COVID-19; B34.8 Other viral infections of unspecified site; R50.9 Fever, unspecified; Z79.899 Other long term (current) drug therapy
CPT/HCPCS: 71046; 87633; 99281; 99283

== ENCOUNTER 2022-09-25 18:16 | Emergency (ER) | payer OTHER, SELFPAY ==
[2022-09-25 18:23] VITALS: BP 130/73; PULSE 96; RESP 16; TEMP 36.2; O2SAT 97; BMI 27.4
[2022-09-25 20:57] VITALS: PULSE 95; RESP 16; O2SAT 98
--- NOTE | 2022-09-25 21:03 | ED_ITS ---
HPI - General Adult General Chief complaint: Upper Respiratory Symptoms Stated complaint: Cough Time Seen by Provider: 09/25/22 20:58 Source: patient Mode of arrival: Ambulatory Limitations: no limitations History of Present Illness HPI narrative: Otherwise healthy 27-year-old male who was seen here in the emergency department couple days ago was diagnosed with parainfluenza virus and also COVID-19. Was sent home with cough medication and an inhaler but he cites the cough medicine has been helpful but he is out of this medicine. He also has an inhaler with a chamber. States he still feels like he is wheezing and coughing. Related Data Previous Rx's Medication Instructions Recorded hydrocodone 5 mg-acetaminophen 325 1 tab PO Q4-6H PRN pain #10 tabs 04/05/22 mg tablet tamsulosin 0.4 mg capsule (Flomax) 0.4 mg PO DAILY #30 caps 04/05/22 hydrocodone 5 mg-acetaminophen 325 1 tab PO Q4-6H PRN pain #14 tabs 08/13/22 mg tablet ondansetron 4 mg disintegrating 4 mg PO Q6H PRN nausea and 08/13/22 tablet vomiting #14 tabs hydrocodone 5 mg-acetaminophen 325 1 tab PO Q4-6H PRN pain #10 tabs 08/14/22 mg tablet prednisone 10 mg tablets in a dose See Rx Instructions PO .COMPLEX 09/19/22 pack #15 ea azithromycin 250 mg tablet See Rx Instructions PO .COMPLEX #6 09/24/22 tabs codeine 10 mg-guaifenesin 100 mg/5 5 ml PO Q4-6H PRN cough #118 mL 09/24/22 mL oral liquid benzonatate 100 mg capsule 100 mg PO TID PRN cough #20 caps 09/25/22 codeine 10 mg-guaifenesin 100 mg/5 10 ml PO Q4-6H PRN cough #120 mL 09/25/22 mL oral liquid Allergies Allergy/AdvReac Type Severity Reaction Status Date / Time No Known Drug Allergies Allergy Verified 08/13/22 23:16 Review of Systems Constitutional Constitutional: Reports system reviewed and no additional complaints, except as documented ENT Ears, Nose, Mouth, and Throat: Reports system reviewed and no additional complaints, except as documented Cardiovascular Cardiovascular: Reports system reviewed and no additional complaints, except as documented Respiratory Respiratory: Reports system reviewed and no additional complaints, except as documented Integumentary/Breasts Skin/Breast: Reports system reviewed and no additional complaints, except as documented Patient History Social History Smoking Status: Current every day smoker Smoking Status: Current every day smoker tobacco type: cigarettes alcohol intake frequency: holidays/special occasions only Substance Use Type: does not use Exam Initial Vital Signs Initial Vital Signs: Vital Signs Temperature 97.1 F L 09/25/22 18:23 Pulse Rate 96 H 09/25/22 18:23 Respiratory Rate 16 09/25/22 18:23 Blood Pressure 130/73 09/25/22 18:23 Pulse Oximetry 97 09/25/22 18:23 Oxygen Delivery Method Room Air 09/25/22 18:23 Resp Effort & Inspection: normal respiratory effort Auscultation: clear to auscultation bilaterally Cardio Rate: regular rate Rhythm: regular rhythm Skin General: no rashes or lesions noted Neuro General: patient alert, patient awake and moves all extremities Extrem General: normal to inspection and capillary refill normal Course Orders Ordered: Discontinued Medications Benzonatate (Benzonatate 100 Mg Capsule) 100 mg PO NOW ONE Stop: 09/25/22 21:04 Last Admin: 09/25/22 21:12 Dose: 100 mg Documented By: SB Vital Signs Vital signs: Vital Signs - 8 hr 09/25/22 18:23 09/25/22 20:57 Temperature 97.1 F L Pulse Rate 96 H 95 H Respiratory Rate 16 16 Blood Pressure 130/73 Pulse Oximetry 97 98 Oxygen Delivery Method Room Air Room Air Medical Decision Making [facility] Narrative Medical decision making narrative: Patient has known COVID-19 and also parainfluenza virus. Lungs are clear. Not hypoxic. Not tachypneic. Had a discussion with him regarding these 2 diagnoses in the fact that he can continue to have cough and shortness of breath and potentially even wheezing. No indication for nebulizer here in the ER as he is not wheezing and that he can use the albuterol with the chamber as needed. There is no indication for antibiotics. No indication for repeat chest x-ray. Will send home with medications to try to help with his cough although he expressed understanding that this potentially is not going to resolve his symptoms. He was given strict return precautions. He expressed understanding and agreement. Discharge Plan Departure Patient Disposition: Home Clinical Impression: COVID-19, Cough Instructions: Cough, COVID-19 Activity Restrictions/Additional Instructions: Unfortunately given the 2 viral illnesses that you have there is no antibiotics to treat these. We can try to help with the symptoms. Use your albuterol inhaler. A prescription for some cough suppressants were sent to [facility] per your request. Contact your primary doctor for follow-up. Prescriptions: New benzonatate 100 mg capsule 100 mg PO TID PRN (Reason: cough) Qty: 20 0RF codeine-guaifenesin 10-100 mg/5 mL liquid 10 ml PO Q4-6H PRN (Reason: cough) Qty: 120 0RF No Action hydrocodone-acetaminophen 5-325 mg tablet 1 tab PO Q4-6H PRN (Reason: pain) Qty: 10 0RF tamsulosin [Flomax] 0.4 mg capsule 0.4 mg PO DAILY Qty: 30 0RF prednisone 10 mg tablets,dose pack See Rx Instructions .ROUTE .COMPLEX Qty: 15 0RF Rx Instructions: Take 5 tablets p.o. x1 day, then 4 tablets p.o. x1 day, then 3 tablets p.o. x1 day, then 2 tablets p.o. x1 day, then 1 tablet p.o. x1 day azithromycin 250 mg tablet See Rx Instructions .ROUTE .COMPLEX Qty: 6 0RF Rx Instructions: For 250 mg dose pack: take 500 mg today (day 1), then 250 mg for 4 days (days 2-5) codeine-guaifenesin 10-100 mg/5 mL liquid 5 ml PO Q4-6H PRN (Reason: cough) Qty: 118 0RF hydrocodone-acetaminophen 5-325 mg tablet 1 tab PO Q4-6H PRN (Reason: pain) Qty: 14 0RF ondansetron 4 mg tablet,disintegrating 4 mg PO Q6H PRN (Reason: nausea and vomiting) Qty: 14 0RF hydrocodone-acetaminophen 5-325 mg tablet 1 tab PO Q4-6H PRN (Reason: pain) Qty: 10 0RF Referrals: ProviderLinda [Primary Care Provider] - Stand Alone Forms: Patient Portal/API
[2022-09-25] MEDS: BENZONATATE 100 MG CAPSULE PO (21:12)
== END 2022-09-25 21:17 | disposition home or self-care (01) ==
PROVIDERS: Emergency Provider Emergency Medicine
DX: U07.1 COVID-19 (principal)
CPT/HCPCS: 99283